=== PATIENT | male | born 1965 | race Two or more races ===

== ENCOUNTER 2017-01-09 16:19 | Emergency (ER) | payer BC ==
[~2017-01-09] VITALS: Ht 180.3 cm; Wt 72.6 kg
[2017-01-09 16:22] VITALS: BP 124/77
== END 2017-01-09 21:53 | disposition left against medical advice (07) ==
LOC: ER 16:26
DX: R53.1 Weakness (principal); Z53.21 Procedure and treatment not carried out due to patient leaving prior to being seen by health care provider
CPT/HCPCS: 93005

== ENCOUNTER 2024-09-15 00:50 | Inpatient (IN) | payer BC, MEDICARE ==
[~2024-09-15] VITALS: Ht 175.3 cm; Wt 79.0 kg
[2024-09-15 01:15] VITALS: PULSE 97; RESP 32; O2SAT 95
[2024-09-15] MEDS: SODIUM CHLORIDE 0.9% 1,000 ML IV ONE ×3 (02:00→04:41)
[2024-09-15 02:07] LABS: Hematocrit 40.1 % (41.0-53.0); Hemoglobin 13.3 g/dL (13.5-17.5); Mean Corpuscular Hemoglobin 26.6 pg (28.0-32.0); Mean Corpuscular Volume 80.0 fL (80.0-100.0); Nucleated Red Blood Cells % 0.1 %
[2024-09-15 02:23] LABS: Alanine Aminotransferase 17 U/L (7-40); Albumin 4.3 g/dL (3.2-4.8); Anion Gap 9 (5-15); BUN/Creatinine Ratio 10.9 (10.0-20.0); Bilirubin, Total 0.7 mg/dL (0.2-1.0); Blood Urea Nitrogen 13 mg/dL (9-23); Calcium 9.0 mg/dL (8.7-10.4); Carbon Dioxide 25 mmol/L (20-31); Chloride 106 mmol/L (98-107); Potassium 3.7 mmol/L (3.5-5.1); Sodium 140 mmol/L (136-145); Total Protein 6.9 g/dL (5.7-8.2)
[2024-09-15] MEDS: ACETAMINOPHEN IV 1000 MG/100ML (10MG/ML) IV ONE (02:25)
[2024-09-15] MEDS: VANCOMYCIN 1GM/200ML PM 200 ML IV ONE (02:34)
--- NOTE | 2024-09-15 02:52 | DVH ---
CHEST RADIOGRAPH Indication: Suspected Sepsis Technique: Single frontal view of the chest was obtained COMPARISON: None FINDINGS: Lines and Tubes: None Lungs: Patchy multifocal bilateral pulmonary airspace disease, most notably within the right lung bas e. Pleura: No effusion. No pneumothorax. Cardiomediastinal contours: Unremarkable Bones: Unremarkable IMPRESSION: 1. Patchy multifocal bilateral pulmonary airspace disease, most notable within the right lung base.
[2024-09-15 02:58] LABS: COVID19 ANTIGEN SOFIA FIA NEGATIVE (NEGATIVE)
[2024-09-15 02:59] LABS: Alkaline Phosphatase 42 U/L (46-116); Glucose 108 mg/dL (74-106)
--- NOTE | 2024-09-15 03:18 | ED.PDOC ---
HPI (NEURO) HPI Comments 58-year-old male who is brought in by ambulance from private residence with spouse and daughter for chief complaint of generalized weakness, fever, and cough. Patient is reported to have developed symptoms on September 11, 2024, during an [place] drip. Since then, patient has been progressively worsening amidst placement on multiple antibiotics, including Cefdinir for over the past 3x days and another unnamed one that was picked up, earlier. notes patient being diagnosed with sepsis during aforementioned trip but never figure out the origin of his infection then. On scene he was noted to have a temperature 101.0 F. vitals were otherwise noted to have been stable and within normal limits. Only significant history for hypothyroidism and multiple sclerosis, with last treatment for the latter being in July 2024. Patient denies having any chest pain, abdominal pain, nausea, vomiting, diarrhea, urinary symptoms, or further associated symptoms. Chief Complaint: General Weakness Time Seen by MD: 00:30 Reviewed Notes: Nurses Notes, Engineering Equipment Operator Notes, Medications, Allergies Information Source: Patient, Emergency Med Personnel Mode of Arrival: EMS Timing: Days Duration: Since onset Prehospital treatment: 12 Lead EKG, Accucheck, Staff Research Associate Review of Systems: REVIEW OF SYSTEMS: General: Fever, no chills, or fatigue HEENT: No sore throat, no earache, no congestion, no neck pain. Cardiac: No chest pain. No palpitations. Lungs: Cough; No shortness of breath GI: No nausea, no vomiting, no diarrhea, no constipation, no abdominal pain : No dysuria, frequency, or urgency. No hematuria. Musculoskeletal: No joint pain , no joint swelling, no extremity edema. Skin: No rash, no itching. Neuro: Generalized weakness; No headache, no dizziness Vital Signs Vital Signs Date Time Temp Pulse Resp B/P (MAP) Pulse Ox O2 Delivery O2 Flow Rate FiO2 09/15/24 07:29 85 09/15/24 07:26 17 97 Room Air* 0 21 09/15/24 07:26 98.3 128/76 (93) 98.3 Physical Exam PHYSICAL EXAM: General: Awake, alert and oriented. Lethargic. Skin: Skin in warm, dry and intact. Appropriate color for ethnicity. HEENT: The head is normocephalic and atraumatic. Conjunctivae are clear without exudates or hemorrhage. Sclera is non-icteric. EOM are intact. No signs of nystagmus. Eyelids are normal in appearance without swelling or lesions. Oral mucosa is pink and moist Neck: The neck is supple with normal range of motion. No JVD. Cardiac: Heart rate and rhythm are normal. No murmurs, gallops, or rubs are auscultated. Respiratory: No signs of respiratory distress. Lung sounds are clear in all lobes bilaterally without rales, rhonchi, or wheezes. Abdominal: Abdomen is soft, non-tender without distention, guarding or rigidity. Bowel sounds are present and normoactive in all four quadrants. Extremities: Upper and lower extremities are atraumatic in appearance without deformity or edema. Neurological: Generalized weakness. The patient is awake, alert and oriented to person, place, and time with normal speech. Speech is clear. There is no facial asymmetry. Psychiatric: Appropriate mood and affect. Good judgement and insight. Past Medical History PAST MEDICAL HISTORY: Thyroid (Hypothyroidism) Past Medical History (Other): Multiple sclerosis Surgical History: Denies all surgeries Family History Family History: Unknown Social History Smoker: Non-Smoker Alcohol: Denies ETOH Use Drugs: Denies Drug Use Lives In: Home Was a procedure done? Was a procedure done?: No Differential Diagnosis (SZ) General Weakness: Anemia, CVA, Dehydration, Electrolyte imbalance, Myocardial infarction, TIA, Other (Viral syndrome) X-Ray, Labs, Meds, VS Vital Signs Date Time Temp Pulse Resp B/P (MAP) Pulse Ox O2 Delivery O2 Flow Rate FiO2 09/15/24 07:29 85 09/15/24 07:26 70 17 97 Room Air* 0 09/15/24 07:26 98.3 70 17 128/76 (93) 97 98.3 09/15/24 06:07 73 13 119/72 (88) 96 09/15/24 05:00 98.7 93 20 116/82 (93) 96 98.7 09/15/24 04:00 87 20 118/66 (83) 95 09/15/24 04:00 92 09/15/24 03:00 93 28 135/73 (93) 95 09/15/24 01:15 97 32 95 Room Air* 0 21 09/15/24 01:08 103.1 97 18 134/69 (90) 96 103.1 09/15/24 01:05 102.8 97 32 131/73 (92) 95 102.8 Lab Test 09/15/24 01:51 09/15/24 01:30 Range/Units White Blood Count 6.3 4.4-10.8 10^3/uL Red Blood Count 5.01 4.5-5.90 10^6/uL Hemoglobin 13.3 L 13.5-17.5 g/dL Hematocrit 40.1 L 41.0-53.0 % Mean Corpuscular Volume 80.0 80.0-100.0 fL Mean Corpuscular Hemoglobin 26.6 L 28.0-32.0 pg Mean Corpuscular Hemoglobin Concent 33.2 32.0-36.0 g/dL Red Cell Distribution Width 14.7 H 11.8-14.3 % Platelet Count 208 140-450 10^3/uL Mean Platelet Volume 7.8 6.9-10.8 fL Neutrophils (%) (Auto) 73.9 37.0-80.0 % Lymphocytes (%) (Auto) 10.0 10.0-50.0 % Monocytes (%) (Auto) 15.6 H 0.0-12.0 % Eosinophils (%) (Auto) 0.2 0.0-7.0 % Basophils (%) (Auto) 0.3 0.0-2.0 % Neutrophils # (Auto) 4.7 1.6-8.6 10 ^3/uL Lymphocytes # (Auto) 0.6 0.4-5.4 10 ^3/uL Monocytes # (Auto) 1.0 0-1.3 10 ^3/uL Eosinophils # (Auto) 0 0-0.8 10 ^3/uL Basophils # (Auto) 0 0-0.2 10 ^3/uL Nucleated Red Blood Cells 0.1 % Sodium Level 140 136-145 mmol/L Potassium Level 3.7 3.5-5.1 mmol/L Chloride Level 106 98-107 mmol/L Carbon Dioxide Level 25 20-31 mmol/L Anion Gap 9 5-15 Blood Urea Nitrogen 13 9-23 mg/dL Creatinine 1.19 0.700-1.30 mg/dL Glomerular Filtration Rate Calc 71 >90 mL/min BUN/Creatinine Ratio 10.9 10.0-20.0 Serum Glucose 108 H 74-106 mg/dL Lactic Acid Level 1.6 0.4-2.0 mmol/L Calcium Level 9.0 8.7-10.4 mg/dL Total Bilirubin 0.7 0.2-1.0 mg/dL Aspartate Amino Transferase (AST) 23 13-40 U/L Alanine Aminotransferase (ALT) 17 7-40 U/L Alkaline Phosphatase 42 L 46-116 U/L Total Protein 6.9 5.7-8.2 g/dL Albumin 4.3 3.2-4.8 g/dL Thyroid Stimulating Hormone (TSH) 0.73 0.55-4.78 uIU/mL Influenza Type A Antigen Negative Negative Influenza Type B Antigen Negative Negative SARS-CoV-2 Antigen (Rapid) Negative NEGATIVE Current Medications Medications (Trade) Dose Ordered Sig/Annmarie Route Start Time Stop Time Status Last Admin Sodium Chloride 1,000 ml @ 130 mls/hr Q7H42M ONCE IV 09/15/24 01:15 09/15/24 08:57 DC 09/15/24 02:00 Sodium Chloride 1,000 ml @ 1,000 mls/hr Q1H ONCE IV 09/15/24 01:15 09/15/24 02:14 DC 09/15/24 02:03 Acetaminophen (Ofirmev) 1,000 mg ONCE ONCE IV 09/15/24 02:30 09/15/24 02:31 DC 09/15/24 02:25 Piperacillin Sod/ Tazobactam Sod 100 ml @ 100 mls/hr ONCE ONCE IV 09/15/24 02:30 09/15/24 03:29 DC 09/15/24 03:24 Vancomycin HCl 200 ml @ 200 mls/hr ONCE ONCE IV 09/15/24 02:30 09/15/24 03:29 DC 09/15/24 02:34 Acetaminophen (Tylenol Tablet) 650 mg Q6HP PRN PO 09/15/24 08:00 09/15/24 16:[address] [address] Ph: [phone] DIAGNOSTIC IMAGING Diagnostic Imaging Report : [id number] Signed PATIENT: ANNA MORELOS ACCT: [id number] UNIT: [id number] : 1965 LOC: ER ROOM / BED: / AGE / SEX: 58 / M ADM STATUS: REG ER SERVICE 0108 ORDERING PHYSICIAN: AISSATOU HAMILTON MD PROCEDURE(s): CXR1 - CHEST XRAY 1 VIEW REASON: Suspected Sepsis ORDER NUMBER(s): [id number], ACCESSION NUMBER(s): [id number] CHEST RADIOGRAPH Indication: Suspected Sepsis Technique: Single frontal view of the chest was obtained COMPARISON: None FINDINGS: Lines and Tubes: None Lungs: Patchy multifocal bilateral pulmonary airspace disease, most notably within the right lung base. Pleura: No effusion. No pneumothorax. Cardiomediastinal contours: Unremarkable Bones: Unremarkable IMPRESSION: 1. Patchy multifocal bilateral pulmonary airspace disease, most notable within the right lung base. ATED BY: LONNIE MEYER MD DICTATED DATE/TIME: 09/15/24248 SIGNED BY: LONNIE MEYER MD SIGNED DATE/TIME: 09/15/24248 CC: Time of 1ST Reevaluation: 01:00 Reevaluation 1ST: Unchanged Patient Education/Counseling: Other (Need for admission) Family Education/Counseling: Other (Need for admission) Departure 1 Departure Time of Disposition: 03:00 Impression: Primary Impression: Generalized weakness Additional Impressions: Fever, unspecified Suspected sepsis Disposition: ADMITTED INPATIENT Condition: Stable Comments Patient admitted to hospitalist service for further treatment, evaluation and monitoring. Extensive evaluation was performed in attempt to identify or rule out: (See differential diagnosis section) The following tests were ordered, and results were reviewed by me and discussed with patient: (See diagnostic results section) The following test were independently interpreted by me: N/A I reviewed and agreed with the following test results read by other providers: Chest x-ray I reviewed the following notes from the pt's past medical encounters: January 09, 2017 encounter for MS flare-up Additional information was gathered from interviewing the following independent historians: EMS personnel, spouse Discussion of management or test interpretation with external physician/other qualified health ocular care aide: N/A Decision regarding hospitalization or escalation of hospital level of care: Risk and benefits of admission for further treatment of patient's condition was considered. Due to patient's current clinical condition, high risk of decline and poor outcome if discharged and need for further inpatient management and monitoring, patient will be admitted to the hospital. Drug therapy requiring intensive monitoring for toxicity: N/A Parenteral controlled substances: N/A Decision regarding elective major surgery with identified patient or procedure risk factors: N/A Decision regarding emergency major surgery: N/A Decision not to resuscitate or to de-escalate care because of poor prognosis: N/A Diagnosis or treatment significantly limited by social determinants of health: N/A Critical Care Note Critical Care Time?: No Stability Stability form required: No Heart Score Heart Score: Heart Score Response (Comments) Value History N/A 0 EKG N/A 0 Age N/A 0 Risk Factors N/A 0 Troponin N/A 0 Total 0 I personally scribed for AISSATOU HAMILTON MD ([email or web address]) on 09/15/24 at 03:18. Electronically submitted by Anna Cheng ([email or web address]). AISSATOU HAMILTON MD Sep 15, 2024 03:18
[2024-09-15] MEDS: PIPERACILLIN-TAZOB 3.375GM 100 ML IV ONE (03:24)
[2024-09-15 07:26] VITALS: PULSE 70; RESP 17; O2SAT 97
[2024-09-15] MEDS ORDERED: ONDANSETRON HCL 4 MG/2 ML VIAL IV PRN (08:00)
[2024-09-15] MEDS ORDERED: HYDROcodone-ACET 5/325MG TAB PO PRN (08:00)
[2024-09-15] MEDS ORDERED: DOCUSATE SOD 100 MG CAP PO PRN (08:00)
--- NOTE | 2024-09-15 08:37 | DVHHP2 ---
History of Present Illness Reason for Visit: Generalized weakness History of Present Illness The patient is a 58-year-old male with past medical history multiple sclerosis and hypothyroidism presented to [facility] ED with complaint of generalized weakness. Patient reports he has been experiencing persistent gener alized weakness, associated with fever, cough, getting worse that prompted this visit. Patient reported to have developed symptoms on September 11, 2024, during an [place] drip. Since then, patient has been progressively worsening amidst placement on multiple antibiotics, including Cefdinir for over the past 3x days and another unnamed one that was picked up, earlier. notes patient being diagnosed with sepsis during aforementioned trip but never figure out the origin of his infection then. On scene he was noted to have a temperature 101.0 F. Patient was seen and evaluated in the ED, laboratory data shows WBC 6.3, platelets 208, sodium 140, potassium 3.7, BUN 13, creatinine 1.19, glucose 108, calcium 9.0. Chest x-ray revealing patchy multifocal bilateral pulmonary airspace disease, most notable within the right lung base. Patient was started on IV antibiotic regimen azithromycin, please see medication orders section in the computer. On my assessment, patient denied chest pain, no headache, no dizziness, no diaphoresis, currently on oxygen, no nausea, no vomiting, no fever at this moment. Patient was admitted for further evaluation and medical management. Past Medical History Thyroid (Hypothyroidism), Multiple sclerosis Past Surgical History Denies all surgeries Family History Reviewed, noncontributory to the management of this case. Past Social History The patient lives at home, denies smoking, alcohol or illicit drugs abuse. Review of Systems Constitutional: Yes: Fever, Chills, Weakness; No: Sweats, Malaise, Other Eyes: No: Pain, Vision change, Conjunctivae inflammation, Eyelid inflammation, Other, Redness ENT: No: Ear pain, Ear discharge, Nose pain, Nose discharge, Nose congestion, Mouth pain, Mouth swelling, Throat pain, Throat swelling, Other Respiratory: Shortness of breath; No: Cough, Dry, SOB with excertion, Wheezing, Hemoptysis, Pleuritic Pain, Sputum, Wheezing, Other Cardiovascular: No: Chest Pain, Palpitations, Orthopnea, Paroxysmal Noc. Dyspnea, Edema, Lt Headedness, Other Gastrointestinal: Nausea; No: Vomiting, Abdominal Pain, Diarrhea, Constipation, Melena, Hematochezia, Other Genitourinary: No Dysuria, No Frequency, No Incontinence, No Hematuria, No Retention, No Other Musculoskeletal: No: other, neck pain, shoulder pain, arm pain, back pain, hand pain, leg pain, foot pain Skin: No: Rash, Lesions, Jaundice, Bruising, Other Neurological: No: Weakness, Numbness, Incoordination, Change in speech, Confusion, Seizures, Other Allergies: Coded Allergies: NO KNOWN ALLERGIES (Unverified , 01/09/17) Medications Current Medications Medications Dose Ordered Sig/Annmarie Route Start Time Stop Time Status Last Admin Dose Admin Levothyroxine Sodium 50 mcg QAM@0600 PO 09/16/24 06:00 UNV Azithromycin 250 ml @ 125 mls/hr DAILY IV 09/15/24 10:00 UNV Sodium Chloride 10 ml Q8HR IV 09/15/24 14:00 UNV Acetaminophen/ Hydrocodone Bitart 1 tab Q4HP PRN PO 09/15/24 08:00 UNV Ondansetron HCl 4 mg Q4HP PRN IV 09/15/24 08:00 UNV Docusate Sodium 100 mg BIDPRN PRN PO 09/15/24 08:00 UNV Acetaminophen 650 mg Q6HP PRN PO 09/15/24 08:00 UNV Exam Vital Signs Vital Signs Date Time Temp Pulse Resp B/P (MAP) Pulse Ox O2 Delivery O2 Flow Rate FiO2 09/15/24 07:29 85 09/15/24 07:26 17 97 Room Air* 0 21 09/15/24 07:26 98.3 128/76 (93) 98.3 General Appearance: Alert, Oriented X3, Cooperative, No acute distress HEENT: Atraumatic, PERRLA, EOMI, Mucous membr. moist/pink Respiratory: Normal air movement, Other (Diminished breath sounds) Cardiovascular: Regular rate, Normal S1, Normal S2, No murmurs Abdominal: Normal bowel sounds, Soft, No tenderness, No hepatospenomegaly, No masses Extremities: No clubbing, No cyanosis, No edema, Normal pulses, No tenderness/swelling Skin: No rashes, No significant lesion Neuro: Normal speech, Normal tone, Sensation intact, Cranial nerves 3-12 NL, Reflexes 2+, Other (Generalized weakness) Psych/Mental Status: Mental status NL, Mood NL Labs/Xrays Labs Test 09/15/24 01:51 09/15/24 01:30 Range/Units White Blood Count 6.3 4.4-10.8 10^3/uL Red Blood Count 5.01 4.5-5.90 10^6/uL Hemoglobin 13.3 L 13.5-17.5 g/dL Hematocrit 40.1 L 41.0-53.0 % Mean Corpuscular Volume 80.0 80.0-100.0 fL Mean Corpuscular Hemoglobin 26.6 L 28.0-32.0 pg Mean Corpuscular Hemoglobin Concent 33.2 32.0-36.0 g/dL Red Cell Distribution Width 14.7 H 11.8-14.3 % Platelet Count 208 140-450 10^3/uL Mean Platelet Volume 7.8 6.9-10.8 fL Neutrophils (%) (Auto) 73.9 37.0-80.0 % Lymphocytes (%) (Auto) 10.0 10.0-50.0 % Monocytes (%) (Auto) 15.6 H 0.0-12.0 % Eosinophils (%) (Auto) 0.2 0.0-7.0 % Basophils (%) (Auto) 0.3 0.0-2.0 % Neutrophils # (Auto) 4.7 1.6-8.6 10 ^3/uL Lymphocytes # (Auto) 0.6 0.4-5.4 10 ^3/uL Monocytes # (Auto) 1.0 0-1.3 10 ^3/uL Eosinophils # (Auto) 0 0-0.8 10 ^3/uL Basophils # (Auto) 0 0-0.2 10 ^3/uL Nucleated Red Blood Cells 0.1 % Sodium Level 140 136-145 mmol/L Potassium Level 3.7 3.5-5.1 mmol/L Chloride Level 106 98-107 mmol/L Carbon Dioxide Level 25 20-31 mmol/L Anion Gap 9 5-15 Blood Urea Nitrogen 13 9-23 mg/dL Creatinine 1.19 0.700-1.30 mg/dL Glomerular Filtration Rate Calc 71 >90 mL/min BUN/Creatinine Ratio 10.9 10.0-20.0 Serum Glucose 108 H 74-106 mg/dL Lactic Acid Level 1.6 0.4-2.0 mmol/L Calcium Level 9.0 8.7-10.4 mg/dL Total Bilirubin 0.7 0.2-1.0 mg/dL Aspartate Amino Transferase (AST) 23 13-40 U/L Alanine Aminotransferase (ALT) 17 7-40 U/L Alkaline Phosphatase 42 L 46-116 U/L Total Protein 6.9 5.7-8.2 g/dL Albumin 4.3 3.2-4.8 g/dL Influenza Type A Antigen Negative Negative Influenza Type B Antigen Negative Negative SARS-CoV-2 Antigen (Rapid) Negative NEGATIVE PATIENT: ANNA MORELOS ACCT: [id number] UNIT: [id number] : 1965 LOC: ER ROOM / BED: / AGE / SEX: 58 / M ADM STATUS: REG ER SERVICE 0108 ORDERING PHYSICIAN: AISSATOU HAMILTON MD PROCEDURE(s): CXR1 - CHEST XRAY 1 VIEW REASON: Suspected Sepsis ORDER NUMBER(s): [id number], ACCESSION NUMBER(s): [id number] CHEST RADIOGRAPH Indication: Suspected Sepsis Technique: Single frontal view of the chest was obtained COMPARISON: None FINDINGS: Lines and Tubes: None Lungs: Patchy multifocal bilateral pulmonary airspace disease, most notably within the right lung base. Pleura: No effusion. No pneumothorax. Cardiomediastinal contours: Unremarkable Bones: Unremarkable IMPRESSION: 1. Patchy multifocal bilateral pulmonary airspace disease, most notable within the right lung base. SEPSIS Sepsis Screen Date sepsis recognized/suspect: Sep 15, 2024 Time Sepsis recognized/suspect: 725 Recent Procedure: No On Antibiotic Therapy: Yes Respiratory Rate >20: No Heart Rate >90: No Temp<36 C (96.8 F) or >38.3 C: No SBP <90 or MAP <65 mmHG: No New Acute Mental Status Change: No Is the patient on CPAP, BIPAP,: No Physician Orders Sodium Chloride 0.9% (09/15/24 01:15) Vital Signs Q1HR (09/15/24 01:08) Saline Lock (09/15/24 01:08) Net Finisher (09/15/24 ) Rectal/Core Temps Only (09/15/24 01:08) Notify Md If Abnormal Vs (09/15/24 01:08) Blood Culture (09/15/24 01:08) Chest Xray 1 View (09/15/24 01:08) Urinalysis (09/15/24 01:08) Thyroid Stimulating Hormone (09/15/24 07:56) Levothyroxine Tablet (Synthroid Tablet) (09/16/24 06:00) Azithromycin 500mg/ 250ml (Zithromax 50 (09/15/24 10:00) Allergies (09/15/24 07:56) Code Status (09/15/24 07:56) Sodium Chloride Lock (Saline Lock Ns) (09/15/24 14:00) Oxygen Per Hour (09/15/24 07:56) Hydrocodone-Acet 5/325mg Tab ([place] 5/32 (09/15/24 08:00) Ondansetron Hcl (Zofran) (09/15/24 08:00) Docusate Sodium Capsule (Colace Capsule) (09/15/24 08:00) Complete Blood Count (09/16/24 04:00) Comprehensive Metabolic Panel (09/16/24 04:00) Cardiac Diet-2gna,Lofat,Lochol (09/15/24 Breakfast) Condition: Serious (09/15/24 07:56) Acetaminophen Tablet (Tylenol Tablet) (09/15/24 08:00) Bedrest With Bathroom Privileg (09/15/24 07:56) Sequential Compression Device (09/15/24 ) Admit (09/15/24 08:36) Nitroglycerin Sublingual (Ntrostat Subli (09/15/24 08:45) Morphine Sulfate Injection (09/15/24 08:45) Stat Ekg For Chest Pain (09/15/24 08:36) Notify Of Changes From Base (09/15/24 08:36) Junior Accounting Clerk For 24 Hours (09/15/24 08:36) Emergency Dysrhythmia Protocol (09/15/24 08:36) Rhythm Strips Once Every Shift (09/15/24 08:36) Oxygen By Nasal Cannula (09/15/24 08:36) Vital Signs Date Time Temp Pulse Resp B/P (MAP) Pulse Ox O2 Delivery O2 Flow Rate FiO2 09/15/24 07:29 85 09/15/24 07:26 70 17 97 Room Air* 0 21 09/15/24 07:26 98.3 70 17 128/76 (93) 97 98.3 09/15/24 06:07 73 13 119/72 (88) 96 09/15/24 05:00 98.7 93 20 116/82 (93) 96 98.7 09/15/24 04:00 87 20 118/66 (83) 95 09/15/24 04:00 92 09/15/24 03:00 93 28 135/73 (93) 95 09/15/24 01:15 97 32 95 Room Air* 0 21 09/15/24 01:08 103.1 97 18 134/69 (90) 96 103.1 09/15/24 01:05 102.8 97 32 131/73 (92) 95 102.8 Laboratory Tests Test 09/15/24 01:51 Lactic Acid Level 1.6 mmol/L (0.4-2.0) White Blood Count 6.3 10^3/uL (4.4-10.8) Medications Medications Dose Ordered Sig/Annmarie Route Start Time Stop Time Status Last Admin Dose Admin Acetaminophen 1,000 mg ONCE ONCE IV 09/15/24 02:30 09/15/24 02:31 DC 09/15/24 02:25 1,000 MG Piperacillin Sod/ Tazobactam Sod 100 ml @ 100 mls/hr ONCE ONCE IV 09/15/24 02:30 09/15/24 03:29 DC 09/15/24 03:24 100 MLS/HR Sodium Chloride 1,000 ml @ 130 mls/hr Q7H42M ONCE IV 09/15/24 01:15 09/15/24 08:56 09/15/24 02:00 130 MLS/HR Sodium Chloride 1,000 ml @ 1,000 mls/hr Q1H ONCE IV 09/15/24 01:15 09/15/24 02:14 DC 09/15/24 02:03 1,000 MLS/HR Vancomycin HCl 200 ml @ 200 mls/hr ONCE ONCE IV 09/15/24 02:30 09/15/24 03:29 DC 09/15/24 02:34 200 MLS/HR Assessment/Plan Assessment/Plan Generalized weakness Fever, unspecified Pneumonia, unspecified organism Plan 1. Admit to telemetry unit 2. Breathing treatment 3. Pain control management 4. IV antibiotic management 5. Management of fluids and electrolytes 6. Consultation for hospitalist 7. Diagnostic test chest x-ray 8. DVT prophylaxis-on SCDs 9. Repeat labs CBC, CMP in a.m. 10. Home medication reviewed and reconciled 11. Continue with current medical management 12. Treatment plan discussed with patient and RN. Patient/ verbalized understanding. Plan discussed with: Patient, Other (RN) My Orders Orders - AGUILA ZAMORA DNP Procedure Category Date Status Time Thyroid Stimulating LAB 09/15/24 In Process Hormone 07:56 Levothyroxine Tablet PHA 09/16/24 Logged (Synthroid Tablet) 06:00 Azithromycin 500mg/ PHA 09/15/24 Logged 250ml (Zithromax 50 10:00 Allergies LIAM 09/15/24 In Process 07:56 Code Status CODE 09/15/24 Transmitted 07:56 Sodium Chloride Lock PHA 09/15/24 Logged (Saline Lock Ns) 14:00 Oxygen Per Hour RT 09/15/24 Transmitted 07:56 Hydrocodone-Acet PHA 09/15/24 Logged 5/325mg Tab ([place] 08:00 Ondansetron Hcl PHA 09/15/24 Logged (Zofran) 08:00 Docusate Sodium PHA 09/15/24 Logged Capsule (Colace 08:00 Complete Blood Count LAB 09/16/24 Verified 04:00 Comprehensive LAB 09/16/24 Verified Metabolic Panel 04:00 Cardiac DIET 09/15/24 Transmitted Diet-2gna,Lofat,Lochol Breakfast Condition: Serious LIAM 09/15/24 In Process 07:56 Acetaminophen Tablet PHA 09/15/24 Logged (Tylenol Tablet) 08:00 Bedrest With Bathroom LIAM 09/15/24 In Process Privileg 07:56 Sequential LIAM 09/15/24 In Process Compression Device Admit ADMIT 09/15/24 Verified 08:36 Nitroglycerin PHA 09/15/24 Verified Sublingual (Ntrostat 08:45 Morphine Sulfate PHA 09/15/24 Verified Injection 08:45 Stat Ekg For Chest [facility] 09/15/24 Verified Pain 08:36 Notify Of Changes [facility] 09/15/24 Verified From Base 08:36 Junior Accounting Clerk For [facility] 09/15/24 Verified 24 Hours 08:36 Emergency Dysrhythmia [facility] 09/15/24 Verified Protocol 08:36 Rhythm Strips Once [facility] 09/15/24 Verified Every Shift 08:36 Oxygen By Nasal RT 09/15/24 Verified Cannula 08:36 Problem List: (1) Generalized weakness (2) Fever, unspecified (3) Pneumonia, unspecified organism Date of Service: Sep 15, 2024 Billing Provider: AGUILA ZAMORA DNP Common Visit Codes: [id number] INP/OBS CARE (HIGH) AGUILA ZAMORA DNP Sep 15, 2024 08:37
[2024-09-15] MEDS ORDERED: MORPHINE SULFATE INJ 2 MG/ml SYRG IV PRN (08:45)
[2024-09-15] MEDS ORDERED: NITROGLYCERIN 0.4 MG SL TAB SL PRN (08:45)
[2024-09-15] MEDS: AZITHROMYCIN 500MG/ 250ML 250 ML IV SCH (09:30)
[2024-09-15 11:55] LABS: Urine Protein, UAD Negative (Negative)
--- NOTE | 2024-09-15 12:48 | DVHPN2 ---
Progress Note Date Seen: Sep 15, 2024 Medical Necessity Reason Pt with a Central, PICC or Fol: No Subjective Patient reports: No new complaints Review of Systems: HEENT:Normal, CVS:Normal, RESPIRATORY:Normal, GI:Normal, :Normal, MSK:Normal, NEURO:Normal Objective vital signs Vital Sign Date Time Temp Pulse Resp B/P (MAP) Pulse Ox O2 Delivery O2 Flow Rate FiO2 09/15/24 12:14 85 27 120/76 (91) 97 09/15/24 07:26 Room Air* 0 21 09/15/24 07:26 98.3 98.3 Total Intake and Output 09/14/24 09/14/24 09/15/24 15:00 23:00 07:00 Intake Total 1820 ml Balance 1820 ml medications Current Medications Medications Dose Ordered Sig/Annmarie Route Start Time Stop Time Status Last Admin Dose Admin Levothyroxine Sodium 50 mcg QAM@0600 PO 09/16/24 06:00 Azithromycin 250 ml @ 125 mls/hr DAILY IV 09/15/24 10:00 09/15/24 09:30 125 MLS/HR Sodium Chloride 10 ml Q8HR IV 09/15/24 14:00 Acetaminophen/ Hydrocodone Bitart 1 tab Q4HP PRN PO 09/15/24 08:00 Ondansetron HCl 4 mg Q4HP PRN IV 09/15/24 08:00 Docusate Sodium 100 mg BIDPRN PRN PO 09/15/24 08:00 Acetaminophen 650 mg Q6HP PRN PO 09/15/24 08:00 Nitroglycerin 0.4 mg Q5MINP PRN SL 09/15/24 08:45 Morphine Sulfate 2 mg Q30M PRN IV 09/15/24 08:45 Examination: GENERAL:Normal, HEENT:Normal, NECK:Normal, LUNGS:Normal, CVS:Normal, ABDOMEN:Normal, MSK:Normal, SKIN:Normal, NEURO:Normal, :Normal laboratory and microbiology Laboratory Tests 09/15/24 01:51 Test 09/15/24 01:51 Range/Units Serum Glucose 108 H 74-106 mg/dL Problem List/Assessment/Plan Problem List/Assessment/Plan #1 pneumonia- gram positive/neg with sepsis: iv antibiotics, ct chest #2 flare up of MS: neuro eval #3 hypothyroidism s/p surgery: cont meds advance care planning- full code- time spent 18 mins Plan discussed with: Patient Date of Service: Sep 15, 2024 Billing Provider: GEOVANNI CONKLIN MD Common Visit Codes: [id number] INP/OBS CARE(HIGH) Secondary Visit Codes: [id number] CARE PLAN 30 MINUTES GEOVANNI CONKLIN MD Sep 15, 2024 12:48
[2024-09-15 13:09] VITALS: PULSE 88; RESP 18; O2SAT 96
[2024-09-15 13:20] VITALS: BP 132/68; PULSE 82; RESP 18; TEMP 98.9; O2SAT 98
[2024-09-15] MEDS: cefTRIAXone 1GM/50ML D5W 50 ML IV ONE (14:05)
[2024-09-15] MEDS: SODIUM CHLOR 0.9% PF (SALINE LOCK) 10ML VIAL/SYR IV SCH (14:05)
[2024-09-15] MEDS: SODIUM CHLORIDE 0.9% 1,000 ML IV SCH (14:06)
--- NOTE | 2024-09-15 15:18 | DVH ---
Procedure: CT CHEST WITHOUT CONTRAST Reason for study/Clinical History: pneumonia Comparison Study: None Exam Date: 09/15/2024 02:05 PM TECHNIQUE: Multidetector CT of the chest was performed from the lung apices to the upper abdomen with out the use of intravenous contract. Axial, coronal and sagittal multiplanar reformats were performed . Radiation Dose Information: CT Dose: CTDI volume is 11.54 mGy. Dose-length product is 399.66 mGy*cm The dose indicators for CT are the volume Computed Tomography (CT) Dose Index (CTDIvol) and the Dose Length Product (DLP), and are measured in units of mGy and mGy-cm, respectively. These indicators are not patient dose, but values generated from the CT scanner acquisition factors. The report includes radiation exposure data for exposures received during this examination. FINDINGS: Lower neck: Normal thyroid. Lungs: No focal consolidation, pleural effusion or pneumothorax. Heart/Vascular Structures: Normal heart size. No pericardial effusion. Lymph Nodes: No adenopathy Pleura: Pleural thickening with atelectasis in the left lower lung zone Musculoskeletal: No acute osseous abnormality. Soft tissues: Normal. Upper abdomen: Limited portions of the upper abdomen are unremarkable except for some scattered cysts in the left lobe of the liver.. IMPRESSION: 1. Mild focal infiltrate right lower lobe. 2. Atelectasis with pleural thickening in the left lung base. Radiation optimization: All CT scans at this facility use at least one of these dose optimization ishmael hniques: automated exposure control mA and/or kV adjustment per patient size (includes targeted exam s where dose is matched to clinical indication) or iterative reconstruction.
[2024-09-15] MEDS: ACETAMINOPHEN 325 MG TAB PO PRN (16:55)
[2024-09-15] MEDS ORDERED: LEVO50CA3 PO (17:21)
[2024-09-15 20:00] VITALS: PULSE 80; PULSE 92; RESP 20; O2SAT 98
[2024-09-15 21:00] VITALS: BP 140/91; PULSE 80; RESP 22; TEMP 98.3; O2SAT 98
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
[2024-09-16] VITALS (10 sets, daily range): BP systolic 122–139; BP diastolic 76–92; PULSE 76–91; RESP 16–22; TEMP 97.5–99.7; O2SAT 94–99
[2024-09-16] MEDS: LEVOTHYROXINE SODIUM 50 MCG TAB PO SCH (06:03)
[2024-09-16 06:16] LABS: Nucleated Red Blood Cells % 0.1 %
[2024-09-16 06:22] LABS: Hematocrit 37.7 % (41.0-53.0); Hemoglobin 13.1 g/dL (13.5-17.5); Mean Corpuscular Hemoglobin 27.2 pg (28.0-32.0); Mean Corpuscular Volume 78.4 fL (80.0-100.0)
[2024-09-16 06:34] LABS: Alanine Aminotransferase 15 U/L (7-40); Albumin 3.7 g/dL (3.2-4.8); Anion Gap 10 (5-15); BUN/Creatinine Ratio 10.4 (10.0-20.0); Blood Urea Nitrogen 10 mg/dL (9-23); Calcium 8.8 mg/dL (8.7-10.4); Carbon Dioxide 23 mmol/L (20-31); Glucose 81 mg/dL (74-106); Potassium 3.8 mmol/L (3.5-5.1); Sodium 140 mmol/L (136-145); Total Protein 5.9 g/dL (5.7-8.2)
[2024-09-16 06:35] LABS: Alkaline Phosphatase 33 U/L (46-116); Bilirubin, Total 0.6 mg/dL (0.2-1.0); Chloride 107 mmol/L (98-107)
[2024-09-16] MEDS: cefTRIAXone 1GM/50ML D5W 50 ML IV SCH (09:01)
--- NOTE | 2024-09-16 10:22 | DVHPN2 ---
Progress Note - Dictate Date Seen: Sep 16, 2024 Medical Necessity Reason Pt with a Central, PICC or Fol: No Subjective Mr. Wells is a 58 years old right-handed gentleman with a history of hypothyroidism, the patient came to the [facility] on 09/15/2024 with a chief complaint of general weakness, fever, and coughing. I have seen and examined the patient, discussed with her nurse, the case was discussed with Dr. Champagne He is doing fine, alert and fully oriented, no change on physical examination T-max in the last 24 hours was 101 degree F, but was 99.7 since 09/16/2024 Urinalysis, 09/15/2024: WBC: 7, urine leukocyte esterase: Trace WBC/HB/PLT/MCV, 09/15/2024: 6.3/13.3/208/80 CMP, 09/15/2024: Unremarkable TSH, 09/15/2024: 0.73 This medical document was created using an electronic medical record system with [employer] computerized dictation system. Although this document has been carefully reviewed, there may still be some phonetic and typographical errors. These areas are purely typographical due to imperfections of the software programs, and do not reflect any compromise in the patient's medical care. vital signs Vital Sign Date Time Temp Pulse Resp B/P (MAP) Pulse Ox O2 Delivery O2 Flow Rate FiO2 09/16/24 09:03 97.5 83 17 128/88 (101) 98 97.5 09/16/24 08:00 Room Air* 0 21 Total Intake and Output 09/15/24 09/15/24 09/16/24 15:00 23:00 07:00 Intake Total 250 ml 210 ml Output Total 500 ml Balance 250 ml -290 ml medications Current Medications Medications Dose Ordered Sig/Annmarie Route Start Time Stop Time Status Last Admin Dose Admin Levothyroxine Sodium 50 mcg QAM@0600 PO 09/16/24 06:00 09/16/24 06:03 50 MCG Azithromycin 250 ml @ 125 mls/hr DAILY IV 09/15/24 10:00 09/16/24 10:12 125 MLS/HR Sodium Chloride 10 ml Q8HR IV 09/15/24 14:00 09/16/24 06:02 10 ML Acetaminophen/ Hydrocodone Bitart 1 tab Q4HP PRN PO 09/15/24 08:00 Ondansetron HCl 4 mg Q4HP PRN IV 09/15/24 08:00 Docusate Sodium 100 mg BIDPRN PRN PO 09/15/24 08:00 Acetaminophen 650 mg Q6HP PRN PO 09/15/24 08:00 09/15/24 16:55 650 MG Nitroglycerin 0.4 mg Q5MINP PRN SL 09/15/24 08:45 Morphine Sulfate 2 mg Q30M PRN IV 09/15/24 08:45 Ceftriaxone Sodium 50 ml @ 100 mls/hr DAILY@09 IV 09/16/24 09:00 09/16/24 09:01 100 MLS/HR Sodium Chloride 1,000 ml @ 75 mls/hr [id number] IV 09/15/24 12:45 09/16/24 00:35 75 MLS/HR objective General: the patient is well developed and nourished. No acute distress. MENTAL STATUS: Awake and alert. Oriented to person, place, time and general circumstances. Able to give personal history. SPEECH, LANGUAGE, HIGHER CORTICAL FUNCTION: no aphasia or dysathria. CRANIAL NERVES: Pupils are equal, round and reactive. EOMs full and conjugate. No nystagmus. Facial sensation intact in all three divisions bilaterally. Mandibular strength intact. Facial muscles symmetrical and strength intact. SENSATION: Sensation to touch and pinprick is normal. MOTOR: Normal tone in the upper and lower extremity. Normal muscle bulk. No fasciculations. No abnormal movements or posturing. Muscle strength of the major groups in the extremities is 5/5. REFLEXES: Deep tendon reflexes normal and symmetrical. No pathological reflexes. CEREBELLAR/COORDINATION: Finger to nose test showed bilateral internal tremor with right-sided more affected GAIT/STATION: deferred laboratory and microbiology Laboratory Tests 09/16/24 05:12 Test 09/16/24 05:12 Range/Units Serum Glucose 81 74-106 mg/dL Problem List Multiple sclerosis Symptoms of multiple sclerosis exacerbation since 09/14/2024 Pseudo MS exacerbation secondary to UTI, fever Rule out MS exacerbation, less likely Urinary tract infection Fever, rule out sepsis Assessment/Plan Monitoring Supportive treatment Med surge Follow-up lab Blood culture IV antibiotics I do not recommend IV Solu-Medrol treatment at this time Up to chair Physical therapy Up to chair More recommendation per clinical course Progress: Poor This medical document was created using an electronic medical record system with [email or web address] dictation system. Although this document has been carefully reviewed, there may still be some phonetic and typographical errors. These areas are purely typographical due to imperfections of the software programs, and do not reflect any compromise in the patient's medical care. Prognosis poor Plan discussed with: Patient, Spouse, Other JEWELL EMANUEL MD Sep 16, 2024 10:21
--- NOTE | 2024-09-16 10:28 | DVHPN2 ---
Progress Note Date Seen: Sep 16, 2024 Medical Necessity Reason Pt with a Central, PICC or Fol: No Subjective Patient reports: No new complaints Review of Systems: HEENT:Normal, CVS:Normal, RESPIRATORY:Normal, GI:Normal, :Normal, MSK:Normal, NEURO:Normal Objective vital signs Vital Sign Date Time Temp Pulse Resp B/P (MAP) Pulse Ox O2 Delivery O2 Flow Rate FiO2 09/16/24 09:03 97.5 83 17 128/88 (101) 98 97.5 09/16/24 08:00 Room Air* 0 21 Total Intake and Output 09/15/24 09/15/24 09/16/24 15:00 23:00 07:00 Intake Total 250 ml 210 ml Output Total 500 ml Balance 250 ml -290 ml medications Current Medications Medications Dose Ordered Sig/Annmarie Route Start Time Stop Time Status Last Admin Dose Admin Levothyroxine Sodium 50 mcg QAM@0600 PO 09/16/24 06:00 09/16/24 06:03 50 MCG Azithromycin 250 ml @ 125 mls/hr DAILY IV 09/15/24 10:00 09/16/24 10:12 125 MLS/HR Sodium Chloride 10 ml Q8HR IV 09/15/24 14:00 09/16/24 06:02 10 ML Acetaminophen/ Hydrocodone Bitart 1 tab Q4HP PRN PO 09/15/24 08:00 Ondansetron HCl 4 mg Q4HP PRN IV 09/15/24 08:00 Docusate Sodium 100 mg BIDPRN PRN PO 09/15/24 08:00 Acetaminophen 650 mg Q6HP PRN PO 09/15/24 08:00 09/15/24 16:55 650 MG Nitroglycerin 0.4 mg Q5MINP PRN SL 09/15/24 08:45 Morphine Sulfate 2 mg Q30M PRN IV 09/15/24 08:45 Ceftriaxone Sodium 50 ml @ 100 mls/hr DAILY@09 IV 09/16/24 09:00 09/16/24 09:01 100 MLS/HR Sodium Chloride 1,000 ml @ 75 mls/hr [id number] IV 09/15/24 12:45 09/16/24 00:35 75 MLS/HR Examination: GENERAL:Normal, HEENT:Normal, NECK:Normal, LUNGS:Normal, CVS:Normal, ABDOMEN:Normal, MSK:Normal, SKIN:Normal, NEURO:Normal, :Normal laboratory and microbiology Laboratory Tests 09/16/24 05:12 Test 09/16/24 05:12 Range/Units Serum Glucose 81 74-106 mg/dL Microbiology Date/Time Source Procedure Growth Status 09/15/24 01:52 Blood Blood Culture - Preliminary NO GROWTH AFTER 24 HOURS OF INCUBATION. Resulted Problem List/Assessment/Plan Problem List/Assessment/Plan #1 pneumonia- gram positive/neg with sepsis: iv antibiotics, ct chest #2 flare up of MS: neuro eval #3 hypothyroidism s/p surgery: cont meds advance care planning- full code- time spent 18 mins Plan discussed with: Patient, Spouse My Orders My Orders Orders - GEOVANNI CONKLIN MD Procedure Category Date Status Time * Neurology Consult CONS 09/15/24 Transmitted 12:[address] 09/15/24 Resulted 12:40 Ceftriaxone 1gm/50ml PHA 09/16/24 In Process D5w (Rocephin) 09:00 Sodium Chloride 0.9% PHA 09/15/24 In Process 12:45 Regular Diet DIET 09/15/24 Transmitted Lunch Date of Service: Sep 16, 2024 Billing Provider: GEOVANNI CONKLIN MD Common Visit Codes: [id number] INP/OBS CARE(HIGH) GEOVANNI CONKLIN MD Sep 16, 2024 10:28
[2024-09-16] MEDS: Ensure HIGH Protein Chocolate 8oz Bottle PO SCH (12:00)
[2024-09-17 00:54] VITALS: BP 120/79; PULSE 85; RESP 16; TEMP 98.3; O2SAT 96
[2024-09-17 05:00] VITALS: BP 117/93; PULSE 78; RESP 16; TEMP 97.9; O2SAT 96
[2024-09-17 08:00] VITALS: PULSE 75; RESP 18; O2SAT 98
[2024-09-17 09:00] VITALS: BP 122/88; PULSE 75; RESP 18; TEMP 97.9; O2SAT 98
[2024-09-17] MEDS: AZITHROMYCIN 250 MG TAB PO SCH (09:07)
--- NOTE | 2024-09-17 09:57 | DVHPN2 ---
Progress Note - Dictate Date Seen: Sep 17, 2024 Medical Necessity Reason Pt with a Central, PICC or Fol: No Subjective Mr. Wells is a 58 years old right-handed gentleman with a history of hypothyroidism, the patient came to the [facility] on 09/15/2024 with a chief complaint of general weakness, fever, and coughing. I have seen and examined the patient, discussed with his nurse I have discussed with Dr. Champagne He keeps improving, alert and fully oriented, physically stronger, he and his reported better gait yesterday T-max in the last 24 hours was 98.3 Urinalysis, 09/15/2024: WBC: 7, urine leukocyte esterase: Trace WBC/HB/PLT/MCV, 09/15/2024: 6.3/13.3/208/80 CMP, 09/15/2024: Unremarkable TSH, 09/15/2024: 0.73 vital signs Vital Sign Date Time Temp Pulse Resp B/P (MAP) Pulse Ox O2 Delivery O2 Flow Rate FiO2 09/17/24 09:00 97.9 75 18 122/88 (99) 98 97.9 09/16/24 20:00 Room Air* 0 21 Total Intake and Output 09/16/24 09/16/24 09/17/24 15:00 23:00 07:00 Intake Total 300 ml 1250 ml 770 ml Output Total 1300 ml 1150 ml Balance 300 ml -50 ml -380 ml medications Current Medications Medications Dose Ordered Sig/Annmarie Route Start Time Stop Time Status Last Admin Dose Admin Levothyroxine Sodium 50 mcg QAM@0600 PO 09/16/24 06:00 09/17/24 06:00 50 MCG Sodium Chloride 10 ml Q8HR IV 09/15/24 14:00 09/17/24 06:00 10 ML Acetaminophen/ Hydrocodone Bitart 1 tab Q4HP PRN PO 09/15/24 08:00 Ondansetron HCl 4 mg Q4HP PRN IV 09/15/24 08:00 Docusate Sodium 100 mg BIDPRN PRN PO 09/15/24 08:00 Acetaminophen 650 mg Q6HP PRN PO 09/15/24 08:00 09/15/24 16:55 650 MG Nitroglycerin 0.4 mg Q5MINP PRN SL 09/15/24 08:45 Morphine Sulfate 2 mg Q30M PRN IV 09/15/24 08:45 Ceftriaxone Sodium 50 ml @ 100 mls/hr DAILY@09 IV 09/16/24 09:00 09/17/24 09:08 100 MLS/HR Sodium Chloride 1,000 ml @ 75 mls/hr [id number] IV 09/15/24 12:45 09/16/24 15:58 75 MLS/HR Enteral Nutritional Formula 240 ml TIDWM PO 09/16/24 12:00 09/16/24 18:01 240 ML Azithromycin 500 mg DAILY PO 09/17/24 10:00 09/17/24 09:07 500 MG objective General: the patient is well developed and nourished. No acute distress. MENTAL STATUS: Awake and alert. Oriented to person, place, time and general circumstances. Able to give personal history. SPEECH, LANGUAGE, HIGHER CORTICAL FUNCTION: no aphasia or dysathria. CRANIAL NERVES: Pupils are equal, round and reactive. EOMs full and conjugate. No nystagmus. Facial sensation intact in all three divisions bilaterally. Mandibular strength intact. Facial muscles symmetrical and strength intact. SENSATION: Sensation to touch and pinprick is normal. MOTOR: Normal tone in the upper and lower extremity. Normal muscle bulk. No fasciculations. No abnormal movements or posturing. Muscle strength of the major groups in the extremities is 5/5. REFLEXES: Deep tendon reflexes normal and symmetrical. No pathological reflexes. CEREBELLAR/COORDINATION: Finger to nose test showed bilateral internal tremor with right-sided more affected GAIT/STATION: deferred laboratory and microbiology Laboratory Tests 09/16/24 05:12 Test 09/16/24 05:12 Range/Units Serum Glucose 81 74-106 mg/dL Problem List Multiple sclerosis Symptoms of multiple sclerosis exacerbation since 09/14/2024 Pseudo MS exacerbation secondary to UTI, fever Rule out MS exacerbation, less likely Urinary tract infection Fever, rule out sepsis Assessment/Plan Monitoring Supportive treatment Med surge Follow-up lab Blood culture IV antibiotics I do not recommend IV Solu-Medrol treatment at this time Up to chair Physical therapy Up to chair More recommendation per clinical course I recommended home physical therapy Okay to discharge from neurologic point of view This medical document was created using an electronic medical record system with [employer] dictation system. Although this document has been carefully reviewed, there may still be some phonetic and typographical errors. These areas are purely typographical due to imperfections of the software programs, and do not reflect any compromise in the patient's medical care. Prognosis poor Plan discussed with: Patient, Spouse, Other JEWELL EMANUEL MD Sep 17, 2024 09:57
--- NOTE | 2024-09-17 10:07 | DVHDS2 ---
Discharge Summary Date of Admission Sep 15, 2024 at 08:36 Date of Discharge: Sep 17, 2024 Labs/Diagnostic Data: Laboratory Results Test 09/16/24 05:12 09/15/24 10:30 09/15/24 01:51 09/15/24 01:30 White Blood Count 4.9 10^3/uL (4.4-10.8) Red Blood Count 4.81 10^6/uL (4.5-5.90) Hemoglobin 13.1 g/dL (13.5-17.5) Hematocrit 37.7 % (41.0-53.0) Mean Corpuscular Volume 78.4 fL (80.0-100.0) Mean Corpuscular Hemoglobin 27.2 pg (28.0-32.0) Mean Corpuscular Hemoglobin Concent 34.7 g/dL (32.0-36.0) Red Cell Distribution Width 14.3 % (11.8-14.3) Platelet Count 197 10^3/uL (140-450) Mean Platelet Volume 7.8 fL (6.9-10.8) Neutrophils (%) (Auto) 66.4 % (37.0-80.0) Lymphocytes (%) (Auto) 18.3 % (10.0-50.0) Monocytes (%) (Auto) 14.4 % (0.0-12.0) Eosinophils (%) (Auto) 0.4 % (0.0-7.0) Basophils (%) (Auto) 0.5 % (0.0-2.0) Neutrophils # (Auto) 3.2 10 ^3/uL (1.6-8.6) Lymphocytes # (Auto) 0.9 10 ^3/uL (0.4-5.4) Monocytes # (Auto) 0.7 10 ^3/uL (0-1.3) Eosinophils # (Auto) 0 10 ^3/uL (0-0.8) Basophils # (Auto) 0 10 ^3/uL (0-0.2) Nucleated Red Blood Cells 0.1 % Sodium Level 140 mmol/L (136-145) Potassium Level 3.8 mmol/L (3.5-5.1) Chloride Level 107 mmol/L (98-107) Carbon Dioxide Level 23 mmol/L (20-31) Anion Gap 10 (5-15) Blood Urea Nitrogen 10 mg/dL (9-23) Creatinine 0.96 mg/dL (0.700-1.30) Glomerular Filtration Rate Calc 92 mL/min (>90) BUN/Creatinine Ratio 10.4 (10.0-20.0) Serum Glucose 81 mg/dL (74-106) Calcium Level 8.8 mg/dL (8.7-10.4) Total Bilirubin 0.6 mg/dL (0.2-1.0) Aspartate Amino Transferase (AST) 27 U/L (13-40) Alanine Aminotransferase (ALT) 15 U/L (7-40) Alkaline Phosphatase 33 U/L (46-116) Total Protein 5.9 g/dL (5.7-8.2) Albumin 3.7 g/dL (3.2-4.8) Urine Color Light-yellow (Yellow) Urine Clarity Clear (Clear) Urine pH 5.5 (5.0-9.0) Urine Specific [place] 1.016 (1.001-1.035) Urine Protein Negative (Negative) Urine Ketones Negative (Negative) Urine Blood Negative /uL (Negative) Urine Nitrite Negative (Negative) Urine Bilirubin Negative (Negative) Urine Urobilinogen Normal mg/dL (Negative) Urine Leukocyte Esterase Trace /uL (Negative) Urine RBC 1 /hpf (0 - 3) Urine Microscopic WBC 7 /HPF (0-3) Urine Squamous Epithelial Cells Few /hpf (<5) Urine Bacteria None seen /hpf (None Seen) Urine Glucose Normal mg/dL (Normal) Lactic Acid Level 1.6 mmol/L (0.4-2.0) Thyroid Stimulating Hormone (TSH) 0.73 uIU/mL (0.55-4.78) Influenza Type A Antigen Negative (Negative) Influenza Type B Antigen Negative (Negative) SARS-CoV-2 Antigen (Rapid) Negative (NEGATIVE) Other Laboratory Tests 09/16/24 05:12 Brief Hx & Hospital Course: see dictated note Condition at Discharge: Fair Final Diagnosis/Problems List pneumonia Discharge Disposition: Home Discharge Instruct/Medications Diet: Regular Activity: No Restrictions, As Tolerated Follow Up/Referral: fu with pcp in 1 wk Medications: resume home meds dc home after xray chest script to pharmacy Miscellaneous Medications Levothyroxine Sodium (Levothyroxine Sodium), 50 MCG PO, (Reported) Discharge Statement: "Patient was advised to return to the ER or call 911 if any headaches, dizziness, shortness of breath, chest pain, abdominal pain, bleeding, fevers, or worsening of medical condition. Patient was counseled about treatment plan, medications, possible side effects, patientverbalized understanding. All questions were answered to the best of my ability. This discharge took greater then 30 minutes in planning, reviewing documentation, counseling the patient, and discussing with other team members." ASSESSMENT ASSESSMENT Assessment pneumonia Date of Service: Sep 17, 2024 Billing Provider: GEOVANNI CONKLIN MD Common Visit Codes: 36922-CJR/OBS DISCH DAY >30min GEOVANNI CONKLIN MD Sep 17, 2024 10:07
[2024-09-17] MEDS ORDERED: LEVO500T91 PO (10:11)
--- NOTE | 2024-09-17 10:22 | DVHDS ---
DATE OF DISCHARGE: 09/17/2024 HISTORY OF PRESENT ILLNESS: The patient is a 58-year-old gentleman who was admitted with history of increasing fever, cough, and generalized weakness. He has history of multiple sclerosis and hypothyroidism. HOSPITAL COURSE: The patient's blood cultures were negative. The patient had a CT of the chest that showed evidence of an infiltrate in the right lower lobe. The patient was placed on intravenous antibiotics. The patient was febrile to 103 at admission that has since resolved. He will be discharged home after a chest x-ray, to be on home health for physical therapy as well as Levaquin 500 mg daily for 7 days. He will follow up with his primary in 1 week. FINAL DIAGNOSES: * Sepsis with right lung pneumonia, gram positive and gram negative. * Exacerbation of multiple sclerosis. * Hypothyroidism. Time spent in discharge planning and review of plan with the patient and family was 37 minutes. MD LEONORA Sanchez/BJ TID: [id number] RECEIPT: [id number]
[2024-09-17 11:17] VITALS: BP 122/88; PULSE 75; RESP 18; TEMP 97.9; O2SAT 98
--- NOTE | 2024-09-17 11:32 | DVH ---
EXAM: XY CHEST XRAY 1 VIEW Indication: pain; interval changes Technique: Single frontal view of the chest was obtained Comparison: XY CHEST XRAY 1 VIEW on DOS: 09/15/24 FINDINGS: Lines and Tubes: None Lungs: No focal consolidation. Improved interstitial opacities compared to prior exam. Pleura: No effusion. No pneumothorax. Cardiomediastinal contours: Unremarkable Bones: No acute osseous abnormality. IMPRESSION: Improving interstitial opacities compared to prior exam.
== END 2024-09-17 12:35 | disposition home health service (06) | DRG 871 ==
LOC: EEVIPCON 00:50 → EDBD 00:50 → ER 00:50 → OVERFLOW 08:36 → TELE-CENTR 12:26 → CENTRAL 09-17 06:58
PROVIDERS: ADMIT Internal Medicine; ATTEND Internal Medicine
DX: A41.50 Gram-negative sepsis, unspecified (principal); J15.69 Pneumonia due to other Gram-negative bacteria; J15.9 Unspecified bacterial pneumonia; N39.0 Urinary tract infection, site not specified; Z20.822 Contact with and (suspected) exposure to COVID-19; G35 Multiple sclerosis; E03.9 Hypothyroidism, unspecified; Z79.899 Other long term (current) drug therapy; Z82.0 Family history of epilepsy and other diseases of the nervous system
CPT/HCPCS: 36415; 71045; 71250; 80053; 81001; 83605; 84443; 85025; 87040; 87426; 87804; 96365; 97110; 97116; 97163; 97530; G0378; J0131; J2543